=== PATIENT | female | born 2000 | race African-American/Black ===

== ENCOUNTER 2020-10-12 10:25 | Emergency (ER) | payer OTHER ==
[~2020-10-12] VITALS: Ht 165.1 cm; Wt 51.0 kg
[2020-10-12] MEDS ORDERED: ACETAMINOPHEN 325MG TABLET PO ONE (10:45)
[2020-10-12] MEDS ORDERED: TETRACAINE 0.5% OPHTH DROPS 4ML LEFTEYE ONE (12:00)
[2020-10-12] MEDS ORDERED: FLUORESCEIN SODIUM 1MG/STRIP LEFTEYE ONE (12:00)
[2020-10-12] MEDS ORDERED: IBUP-2029 MT (12:22)
[2020-10-12] MEDS ORDERED: HYDR-4346 MT (12:22)
[2020-10-12 12:30] VITALS: BP 133/75
== END 2020-10-12 12:45 | disposition home or self-care (01) ==
LOC: ER 10:36
DX: S02.85XA Fracture of orbit, unspecified, initial encounter for closed fracture (principal); K76.9 Liver disease, unspecified; Y04.0XXA Assault by unarmed brawl or fight, initial encounter; Y93.89 Activity, other specified; Y92.89 Other specified places as the place of occurrence of the external cause; Y99.8 Other external cause status
CPT/HCPCS: 70486; 81025; 99284